=== PATIENT | female | born 1955 | race Caucasian/White ===

== ENCOUNTER → 2018-12-02 | Outpatient (CLI) | payer MEDICARE ==
--- NOTE | 2018-12-09 12:00 | KCIC ---
Bilateral digital screening mammograms with 3-D tomosynthesis: Reason for examination: Routine screening. Comparison is made to previous studies dated 03/13/2016 and 06/26/2011. Bilateral mammograms in CC and oblique projections were obtained with 2-D imaging and 3-D tomosynthesis imaging on a Siemens Inspiration unit and reviewed on the workstation. Interpretation was made with the benefit of CAD. The skin and nipples show no abnormalities. No abnormal axillary lymph nodes are seen. The breast parenchyma is heterogeneously dense. (Breast density: Category C.) There is a nodular density in the 3:00 B position of the right breast medially. There also appears to be a nodular density at the 2:00 B position of the left breast which shows architectural distortion. There are also additional areas of nodular parenchymal density in the 3:00 B of the left breast, central 12:00 B positions of the left breast and at the 10:00 B position of the left breast. There are no suspicious calcifications. Impression: Nodular densities seen bilaterally. Further evaluation with additional coned compression views and ultrasound is recommended. Your patient's mammogram demonstrates that she has dense breast tissue (breast density category C or D), which could hide abnormalities, and if she has other risk factors for breast cancer that have been identified, she might benefit from supplemental screening tests that may be suggested by you as her ordering physician. Dense breast tissue, in and of itself, is a relatively common condition. Therefore, this information is not provided to cause undue concern, but rather to raise your awareness and to promote discussion with your patient regarding the presence of other risk factors, in addition to dense breast tissue. Your patient's mammography results will be sent to her. BI-RAD Category 0: Incomplete. Needs additional imaging evaluation. "Our facility is accredited by the [employer] Mammography [employer]." This patient's information has been entered into a reminder system for the patient to be notified with the results of her examination and a target date for the next mammogram. Electronically signed by: Mandi Huerta MD (12/09/2018 11:57 AM) [id number]
== END | disposition home or self-care (01) ==
LOC: KCIC MAMMO 15:01
PROVIDERS: ATTEND Family Medicine
DX: Z12.31 Encounter for screening mammogram for malignant neoplasm of breast (principal)
CPT/HCPCS: 77063; 77067

== ENCOUNTER → 2018-12-18 | Outpatient (CLI) | payer MEDICARE ==
--- NOTE | 2018-12-18 16:58 | KCIC ---
Bilateral diagnostic digital mammograms: Reason for examination: Nodular densities on screening. Comparison is made to previous study dated 12/02/2018. Coned compression views were obtained in CC and oblique projections. The area of nodularity in the right breast appears to be less focal with coned compression and probably represent some superimposed fibroglandular tissue. The patchy areas of parenchyma in the left breast are also less discrete with the additional coned views. Further evaluation with ultrasound will follow. IMPRESSION: Heterogeneously dense fibroglandular tissue with the areas of nodularity appears less focal on coned compression views. Ultrasound to follow. BI-RADS Category 0: Incomplete. Needs additional imaging evaluation. Bilateral breast ultrasound: Ultrasound examination was performed bilaterally in the areas of mammographic concern and at the axilla. In the right breast at the 3:00 position 5 cm from the nipple, there is a 5.8 mm calcifying lesion consistent with a degenerated fibroadenoma seen mammographically. There are some minimal fibrocystic type changes at the 3:00 position 7 cm from the nipple with 1 lesion measuring approximately 1 cm in size which may represent a fibroadenoma. No abnormal appearing lymph nodes are seen in the right axilla. The left breast shows several small hypoechoic fibrocystic type lesions in the 12:00 position and in the 2:00 position. No grossly suspicious lesions are seen. No abnormal appearing lymph nodes are seen in the axilla. 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 Several small fibrocystic type lesions bilaterally which have benign appearances. No grossly suspicious lesions are seen. Recommend reevaluation with ultrasound in 3 months. BI-RADS Category 3: Probably Benign. "Our facility is accredited by the [employer] Mammography Program." This patient's information has been entered into a reminder system for the patient to be notified with the results of her examination and a target date for the next mammogram. Electronically signed by: Mandi Huerta MD (12/18/2018 4:56 PM) [id number]
== END | disposition home or self-care (01) ==
LOC: KCIC MAMMO 09:58
PROVIDERS: ATTEND Family Medicine
DX: D24.1 Benign neoplasm of right breast (principal); N64.89 Other specified disorders of breast
CPT/HCPCS: 76641; 77066